=== PATIENT | female | born 1970 | race Caucasian/White ===

== ENCOUNTER 2019-09-27 15:09 | Emergency (ER) | payer MEDICARE, OTHER, SELFPAY ==
[2019-09-27 15:18] VITALS: BP 152/96; PULSE 101; RESP 16; TEMP 36.8; O2SAT 97; BMI 30.4
[2019-09-27 15:36] LABS: Basophils % 0.2 %; Eosinophils % 0.1 %; Hematocrit 43.2 % (37.0-47.0); Hemoglobin 14.2 g/dL (11.5-15.3); Lymphocytes # 0.7 10^3/uL (0.8-4.8); Lymphocytes % 5.5 %; Mean Corpuscular HGB Conc 32.9 g/dL (30.0-36.0); Mean Corpuscular Hemoglobin 29.3 pg (28.0-34.0); Mean Corpuscular Volume 89.1 fL (81-99); Mean Platelet Volume 8.8 fL (7.4-10.4); Monocytes # 0.4 10^3/uL (0.2-0.9); Neutrophils # 11.86 10^3/uL (1.8-7.7); Nucleated Red Blood Cells % 0 %; Platelet Count 307 10^3/cmm (130-400); Red Blood Count 4.85 10^6/uL (4.1-5.3); Red Cell Distribution Width 11.9 % (12.1-15.1)
[2019-09-27 15:40] VITALS: O2SAT 96
[2019-09-27 16:01] LABS: Anion Gap 13.2 (5-19); Blood Urea Nitrogen 14 mg/dL (6-20); Calcium 8.9 mg/dL (8.5-10.5); Carbon Dioxide 24 mmol/L (22-29); Chloride 97 mmol/L (98-107); Glomerular Filtration Rate 52.6 mL/min (90-130); Glucose 146 mg/dL (65-115); Osmolality Calculated 269 mOsm/kg (285-295); Potassium 4.2 mmol/L (3.5-5.1); Sodium 130 mmol/L (136-145)
--- NOTE | 2019-09-27 16:14 | ED_ITS ---
HPI - Female Genitourinary General: Chief complaint: Urogenital-Female Stated complaint: abd pain, cannot urinate Time Seen by Provider: 09/27/19 15:13 History of Present Illness: HPI Narrative: 49 yo female recently underwent lithotripsy for left ureteral calculi. She had a 1 cm stone she is complaining of severe left flank pain it is a little improved from before but still significant she is feels like she has difficulty urinating she is not had noticed any gross hematuria consistently but has had intermittent episodes she has been passing a few small stones but not for the last couple of days. She denies any fever sweats or chills MD elicited complaint: dysuria and difficulty urinating Pertinent past history: other (recent lithotripsy for ureteral stone) Onset (ago): hour(s) Location of symptoms: suprapubic Severity: moderate Female Urogenital Radiation: Non-Radiating Quality of pain: cramping Consistency: constant Vaginal discharge: none Vaginal bleeding: none Urinary symptoms: Difficulty Urinating Exacerbating factors: movement Relieving factors: none Associated symptoms: Reports abdominal pain; Deny short of breath, fevers/chills, headache(s), nausea, rash, seizures, syncope, vaginal discharge, weakness or other Treatment prior to arrival: none Sexual activity: No Patient : No Review of Systems Const: Denies: fever(s), chills, body aches, change in appetite, fatigue or malaise ENMT: Denies: throat pain, ear or mastoid pain, nasal discharge or nasal congestion Card: Denies: syncope Resp: Denies: dyspnea, productive cough or non-productive cough GI: Reports: abdominal pain; Denies: nausea : Denies: vaginal discharge Skin/Breast: Denies: rash or pruritus Neuro: Denies: headache(s) PFS ED PFSH: Surgical History History of lithotripsy Social History Smoking and tobacco status: light tobacco smoker Alcohol intake: never Marital status: Physical Exam Const: COMMON NORMALS: average body habitus, patient oriented x3 and alert GENERAL APPEARANCE: cooperative, comfortable, well kempt and well developed NUTRITIONAL APPEARANCE: obese ORIENTATION/CONSCIOUSNESS: Yes awake, Yes oriented to person and Yes oriented to place HENMT: COMMON NORMALS: normocephalic, atraumatic and EAC's normal HEAD & SCALP: normocephalic and atraumatic EXTERNAL AUDITORY CANAL: EAC's normal Eye: COMMON NORMALS: Equal, round and reactive pupils present, EOMs intact bilaterally, conjunctivae normal and no scleral icterus CONJUNCTIVA: Yes conjunctivae normal PUPIL: Yes Equal, round and reactive pupils present Neck/C-Spine: COMMON NORMALS: full ROM, no lymphadenopathy, supple, no meningeal signs and Thyroid normal THYROID: Thyroid normal and asymmetrical Lymph: LYMPHATIC: no lymphadenopathy noted Resp: COMMON NORMALS: normal respiratory effort, No retractions, No use of accessory muscles and clear to auscultation bilaterally AUSCULTATION: clear to auscultation bilaterally Cardio: COMMON NORMALS: regular rate and regular rhythm RATE: regular rate RHYTHM: regular rhythm HEART SOUNDS: no murmurs GI: COMMON NORMALS: Normal to inspection, nondistended, normoactive bowel sounds present, Soft to palpation and No hepatosplenomegaly present PALPATION: Yes Soft to palpation and Yes No hepatosplenomegaly present : BLADDER/KIDNEY EXAM: Yes CVA tenderness on the right Back/Pelvis: GENERAL BACK: Yes CVA tenderness LUMBAR SPINE/LOWER BACK: Yes normal to inspection Extremity: COMMON NORMALS: no clubbing, cyanosis or edema, no calf tenderness and no pedal edema Neuro: COMMON NORMALS: patient oriented x3 SENSORIUM/ORIENTATION: Yes alert, Yes oriented to person and Yes oriented to place MENINGEAL SIGNS: Yes no meningeal signs Psych: APPEARANCE: Yes well kempt Skin: COMMON NORMALS: no rashes or lesions noted and turgor normal GENERAL SKIN EXAM: no rashes or lesions noted and turgor normal Course Vital Signs: Vital signs: Vital Signs Temperature 98.2 F 09/27/19 15:18 Pulse Rate 92 09/27/19 18:07 Respiratory Rate 16 09/27/19 15:18 Blood Pressure 134/85 09/27/19 18:07 Pulse Oximetry 96 09/27/19 18:07 MDM - Female MDM Narrative: Medical decision making narrative: Her urine is unremarkable her CT shows a 7 mm stone still in the ureter. Discussed with that usually 5 mm or less or would consider possible. For now she is relatively comfortable organ to go ahead and discharge home with Zofran and tamsulosin lucinda has some hydrocodone continue to use what was previously prescribed. She has urology she has been seeing out of town encourage her to follow-up with him as soon as possible if she is not able to asked her to contact us back at the ER and we will try to make arrangements for her to see a local urologist Dr. Meyers. Lab Data: Attestation: I reviewed the patient's lab results. Labs: Lab Results 09/27/19 09/27/19 09/27/19 Range/Units 15:30 15:30 16:00 WBC 13.0 H (4.0-10.0) 10^3/ uL RBC 4.85 (4.1-5.3) 10^6/u L Hgb 14.2 (11.5-15.3) g/dL Hct 43.2 (37.0-47.0) % MCV 89.1 (81-99) fL MCH 29.3 (28.0-34.0) pg MCHC 32.9 (30.0-36.0) g/dL RDW 11.9 L (12.1-15.1) % Plt Count 307 (130-400) 10^3/c mm MPV 8.8 (7.4-10.4) fL Neut % (Auto) 91.0 % Lymph % (Auto) 5.5 % [place] % (Auto) 3.0 % Eos % (Auto) 0.1 % Baso % (Auto) 0.2 % Neut # (Auto) 11.86 H (1.8-7.7) 10^3/u L Lymph # (Auto) 0.7 L (0.8-4.8) 10^3/u L [place] # (Auto) 0.4 (0.2-0.9) 10^3/u L Eos # (Auto) 0.0 (0.0-0.8) 10^3/u L Baso # (Auto) 0.0 (0.0-0.1) 10^3/u L Nucleated RBC % (a uto) 0 % Nucleated RBCs # 0.0 /100WBC Sodium 130 L (136-145) mmol/L Potassium 4.2 (3.5-5.1) mmol/L Chloride 97 L (98-107) mmol/L Carbon Dioxide 24 (22-29) mmol/L Anion Gap 13.2 (5-19) BUN 14 (6-20) mg/dL Creatinine 1.1 H (0.5-0.9) mg/dL GFR Calculation 52.6 L (90-130) mL/min Glucose 146 H (65-115) mg/dL Calculated Osmolal ity 269 L (285-295) mOsm/k g Calcium 8.9 (8.5-10.5) mg/dL Urine Color Yellow (Yellow) Urine Appearance Clear (CLEAR) Urine pH 7 (5-7) Ur Specific Gravit y 1.015 (1.005-1.030) Urine Protein Neg (Negative) Urine Glucose (UA) Norm (Normal) Urine Ketones Negative (Negative) Urine Blood Neg (Negative) Urine Nitrate Negative (Negative) Urine Bilirubin Neg (NEGATIVE) Urine Urobilinogen Neg (Negative) mg/dL Ur Leukocyte Bailey ase Negative (Negative) Discharge Plan Discharge Patient Disposition: Home Clinical Impression: Calculus of left ureter Condition: Stable Prescriptions: New ondansetron HCl [Zofran] 4 mg tablet 4 mg PO Q6H PRN (Reason: nausea and vomiting) Qty: 20 RF: 0 tamsulosin 0.4 mg capsule 0.4 mg PO DAILY Qty: 14 RF: 0 No Action hydrocodone-acetaminophen 5-325 mg tablet 1 tab PO Q4H PRN (Reason: Pain) RF: 0 nortriptyline 10 mg Capsule 20 mg PO BEDTIME RF: 0 Probiotic 1 mg PO DAILY RF: 0 Vitamin D3 1 mg PO DAILY RF: 0 resveratrol 1 mg PO DAILY RF: 0 selenium 1 tab PO DAILY RF: 0 Discharge Orders: Discharge Order (Routine); Ordered 09/27/19 Ordered By: Link Hernandez Referrals: Tate Ya MD [Primary Care Provider] - Discharge Diet: Usual diet Discharge Activity: Increase activity as tolerated Activity Restrictions/Additional Instructions: Follow-up with your urologist as soon as you are able. Return to the emergency room if pain is uncontrollable Discharge Date/Time: 09/27/19 18:07 Coding Level of Care Code ED Portainer Operator for Darleen Fwd Exam Comprehensive
--- NOTE | 2019-09-27 16:16 | CTR_ITS ---
PROCEDURE INFORMATION: Exam: CT Abdomen And Pelvis Without Contrast Exam date and time: 09/27/2019 4:23 PM Age: 49 years old Clinical indication: Other: Unable to urinate; Abdominal pain; Flank; Left; Prior surgery; Surgery type: Tubal, lithotripsy; Additional info: Flank pain TECHNIQUE: Imaging protocol: Computed tomography of the abdomen and pelvis without contrast. Radiation optimization: All CT scans at this facility use at least one of these dose optimization techniques: automated exposure control; mA and/or kV adjustment per patient size (includes targeted exams where dose is matched to clinical indication); or iterative reconstruction. COMPARISON: No relevant prior studies available. RADIATION DOSE METRICS: Total DLP (mGy-cm): 1569.53 FINDINGS: Liver: Normal. No mass. Gallbladder and bile ducts: Normal. No calcified stones. No ductal dilation. Pancreas: Normal. No ductal dilation. Spleen: Normal. No splenomegaly. Adrenals: Normal. No mass. Kidneys and ureters: 7 mm calculus at the left ureteropelvic junction with mild left hydronephrosis. 8 mm inferior left renal calculus. Left perinephric stranding. The right kidney is normal. Stomach and bowel: Mild diverticulosis of the sigmoid colon. The stomach and small bowel are unremarkable. Appendix: The appendix is normal. Intraperitoneal space: Unremarkable. No free air. No significant fluid collection. Vasculature: Unremarkable. No abdominal aortic aneurysm. Lymph nodes: Unremarkable. No enlarged lymph nodes. Bladder: Ross catheter in a decompressed urinary bladder. Reproductive: Unremarkable as visualized. Bones/joints: Unremarkable. No acute fracture. Soft tissues: Unremarkable. CT/CT kidney stone 52422 IMPRESSION: 1. 7 mm obstructing calculus at the left ureteropelvic junction with mild hydronephrosis. 2. 8 mm left renal calculus. Radiation Dose CTDIVOL = (mGy): DLP = 1569.53 (mGy-cm)
[2019-09-27 16:52] LABS: Add Urine Microscopic? NO
[2019-09-27 17:00] LABS: Bilirubin Urine Neg (NEGATIVE); Blood Urine Neg (Negative); Glucose Urine UA Norm (Normal); Ketones Urine Negative (Negative); Leukocyte Esterase Urine Negative (Negative); Nitrate Urine Negative (Negative); Protein Urine Neg (Negative); Specific Gravity, Urine 1.015 (1.005-1.030); Urine Appearance Clear (CLEAR); Urine Color Yellow (Yellow); Urobilinogen Urine Neg (Negative); pH Urine 7 (5-7)
[2019-09-27 18:07] VITALS: BP 134/85; PULSE 92; O2SAT 96
--- NOTE | 2019-09-28 11:38 | DCPLANNER ---
biofuels technology development manager had message to schedule a follow up appointment for patient with Dr. Meyers. biofuels technology development manager called the office of Dr. Meyers, spoke with Yulissa, gave clinic patients information. biofuels technology development manager was told that patients information would be printed and reviewed. Clinic will call patient with appointment information.
--- NOTE | 2019-09-29 11:04 | DCPLANNER ---
Patient had a follow up appointment scheduled for 09.29.[address] Meyers - patient did attend appointment.
== END 2019-09-27 18:07 | disposition home or self-care (01) ==
PROVIDERS: Emergency Provider Family Medicine; PCP Family Medicine
DX: N20.1 Calculus of ureter (principal); F17.210 Nicotine dependence, cigarettes, uncomplicated
CPT/HCPCS: 12345; 51702; 51798; 74176; 80048; 81003; 85025; 99283

== ENCOUNTER 2019-09-29 07:50 | Outpatient (CLI) | payer MEDICARE, OTHER, SELFPAY ==
--- NOTE | 2019-09-29 08:00 | XR_ITS ---
WS: [id number] KUB, 09/29/2019 Clinical Data: STONES Comparison: None. Findings: No abnormal intraabdominal masses are seen. There is no dilatated small bowel or evidence of obstruc tion. There are calcifications overlying the inferior pole of the left kidney. There is a large amount of f ecal material in the ascending colon and transverse colon obscuring detail over both kidneys. The gumaro dder is partly full. XR/XR KUB [id number] Impression: Left renal calcifications.
== END 2019-09-29 07:51 | disposition home or self-care (01) ==
LOC: RAD 07:54
PROVIDERS: PCP Family Medicine; Visit Provider Nurse Practitioner Family
DX: N20.0 Calculus of kidney (principal); N20.1 Calculus of ureter
CPT/HCPCS: 74018; 81001; 82365

== ENCOUNTER 2019-09-29 12:41 | Day surgery (SDC) | payer MEDICARE, OTHER, SELFPAY ==
--- NOTE | 2019-09-29 | SCC_ITS ---
Procedure Done: 1. Cystoscopy, Left ureteral stent placement 16.3 seconds of fluoroscopic guidance, for a cumulative dose of 3.07 mGy, was provided to Dr. Meyers by the radiology department. C-arm images of the abdomen were saved for the patient's permanent record. [facility]
[2019-09-29 13:19] LABS: OR HCG Qualitative Urine Negative (Negative)
[2019-09-29 13:30] VITALS: BMI 30.4
[2019-09-29] MEDS: sodium chloride 0.9% 1,000 ML 30 ML IV (13:40)
--- NOTE | 2019-09-29 13:42 | ANES.PREANE2 ---
Pre-Anesthetic Assessment Pre-Anesthetic Assessment: Height/Weight: Height 1.65 m Weight 83.007 kg Preop Diagnosis: Left proximal ureteral stone with obstruction Proposed Procedure: Operation Date: 09/29/19 14:40 Proposed Procedures p Cystoscopy 83186 03724 N20.1(Not Applicable) - Oleg Meyers MD s Retrograde Pyelogram(Right) - MD rach Wright Ureteral Stent Placement(Not Applicable) - Oleg Meyers MD Familial anesthetic complications: none Last intake: Intake Banana and water at 0630 Last Liquid Date 09/29/19 Last Liquid Time 06:30 Last Solid Date 09/29/19 Last Solid Time 06:30 Social: Social History: No alcohol and No tobacco Exam: Pre-Anes Outpt Exam: alert, oriented x 3, clear to auscultation bilaterally and regular rate & rhythm Airway: Cervical ROM: WNL MP: 2 Dentition: Full CV/HEM: Comments: PSVT - usually can self terminate episodes by vagal maneuvers (holding breath and bearing down) Anesthetic Plan: ASA status: 1 Anesthesia: General Risk of > 500 ml blood loss (7ml/kg in children): No Meds/Allergies Current Medications: Current Medications Generic Name Dose Route Start Last Admin Trade Name Freq PRN Reason Stop Dose Admin Sodium Chloride 1,000 mls @ 30 ml s/hr 09/29/19 13:15 09/29/19 13:40 Sodium Chloride 0.9% IV 09/30/19 13:14 30 mls/hr .Q24H NICKY Administration PFSH Anesthesia PFSH: Surgical History History of lithotripsy Social History Smoking and tobacco status: light tobacco smoker Alcohol intake: never Marital status: Data Anesthesia Other Labs: Laboratory Results - last 48 hr 09/29/19 13:18 Urine HCG, Qual Negative Cardiac Studies: No Data to Display
--- NOTE | 2019-09-29 15:07 | SC_ITS ---
WS: [id number] C-arm fluoroscopy in the OR, 09/29/2019 Clinical Data: LEFT URETER STONE Comparison: None. Findings: A left ureteral stent has been inserted. The proximal portion demonstrates placement into the left re nal pelvis. SC/C-arm FL for Urology Impression: Left ureteral stent.
--- NOTE | 2019-09-29 15:27 | W.PM.OPSUD ---
Surgery/Procedure H&P Update DATE OF PROCEDURE: September 29, 2019 DATE H&P PERFORMED: 09/29/19 H&P UPDATE INFORMATION: I have reviewed H&P completed within last 30 days, I have examined patient prior to procedure and [place] [facility] date indicated PREOP DIAGNOSIS: Left proximal ureteral stone with obstruction PLANNED PROCEDURE: Operation Date: 09/29/19 14:40 Proposed Procedures p Cystoscopy 14763 80293 N20.1(Not Applicable) - Oleg Meyers MD s Retrograde Pyelogram(Right) - Oleg Meyers MD s Ureteral Stent Placement(Not Applicable) - Oleg Meyers MD
[2019-09-29] MEDS: levofloxacin-dextrose 5 % 500 MG/100 ML PREMIX 100 MG IV (15:30)
--- NOTE | 2019-09-29 15:38 | PM.OP ---
Operative Report Date of procedure: September 29, 2019 Pre-op Diagnosis: Left proximal ureteral stone with obstruction Post-op diagnosis: same Procedure Done: 1. Cystoscopy, Left ureteral stent placement Pathology: none sent Surgeon: Lugii Anesthesia: General Estimated blood loss: None Complications: None Findings: 7 Samoan by 26 cm double-pigtail stent placed. Condition: stable Disposition: PACU Brief History: Ольга is a very pleasant 49-year-old white female who I evaluated for the first time today in my office for severe left renal colic associated with a large fragment obstructing the left UPJ. About a week ago she underwent a extracorporeal shockwave lithotripsy at [facility] for a large left lower pole stone. She did well until 1 of the fragments became lodged at the left UPJ. It is too early for her to have retreatment at this point and she was offered a stent placement for palliation until that time Reviewed alternatives as well. Procedure: After routine preoperative evaluation examination and obtaining of informed consent she was taken to the operating suite on 09/29/2019 where general anesthesia was administered without difficulty after appropriate timeout was performed, SCDs confirmed to be functioning, preoperative antibiotics administered, beta-reema protocol confirmed. Prepped and draped in usual sterile fashion in dorsolithotomy position pain careful attention to avoiding pressure points 21 Samoan cystoscope with 30 degree lens was introduced into the urethral meatus and advanced into the bladder under videoscopy. Flexible tip guidewire was then advanced up the left ureter bypassing the stone and curling in the area of the renal pelvis and a 7 Samoan by 26 cm double-pigtail stent was advanced over the guidewire through the cystoscope into appropriate position as confirmed via fluoroscopy and cystoscopy. Bladder was drained. She tolerated the procedure well without complications and was awakened in the operating room and returned to the cover him in stable condition. PLANS: 1. Discharge from outpatient surgery 2. Follow-up the week of 10/02/2023 preop evaluation for possible repeat ESWL on 10/09/2019.
[2019-09-29 16:11] VITALS: BP 120/79; PULSE 105; RESP 16; TEMP 36.2; O2SAT 100
[2019-09-29 16:15] VITALS: BP 121/79; PULSE 92; RESP 16; O2SAT 100
[2019-09-29 16:20] VITALS: BP 121/82; PULSE 94; RESP 16; O2SAT 96
--- NOTE | 2019-09-29 16:20 | SUR.PHASEI ---
PT AWAKE ALERT DENIES PAIN AND NAUSEA PT ON RA TRIAL, VSS PT HAS A STENT NO STRING
[2019-09-29 16:28] VITALS: BP 121/81; PULSE 100; RESP 16; TEMP 36.3; O2SAT 97
[2019-09-29 16:58] VITALS: BP 109/79; PULSE 93; RESP 18; TEMP 36.3; O2SAT 96
[2019-09-29 17:00] VITALS: BP 130/85; PULSE 89; RESP 18; O2SAT 96
--- NOTE | 2019-09-29 17:00 | ANE.PACU2 ---
Inpatient post-anesthesia follow up: Airway intact: Yes Vital signs: Temperature 97.4 F Pulse Rate 89 Respiratory Rate 18 Blood Pressure 130/85 Pulse Oximetry 96 Oxygen Delivery Me thod Room Air Oxygen Flow Rate 8 Fraction of Inspir ed Oxygen Hydration adequate: Yes Nausea and vomiting: No Pain level: 2 Mental status: Baseline
== END 2019-09-29 17:15 | disposition home or self-care (01) ==
PROVIDERS: Anesthesiology; PCP Family Medicine; Visit Provider Urology
PROC: 0TJB8ZZ Inspection of Bladder, Via Natural or Artificial Opening Endoscopic (ICD-10-PCS; CPT 52000; principal; 2019-09-29 14:40)
PROC: (CPT 74420; 2019-09-29 14:40)
PROC: (CPT 50605; 2019-09-29 14:40)
DX: N20.1 Calculus of ureter (principal); F17.210 Nicotine dependence, cigarettes, uncomplicated; N20.0 Calculus of kidney
CPT/HCPCS: 52332; 12345; 74018; 76000; 81001; 82365; 84703; C2625; J1100; J1956; J2405; J2704; J2765; J3010; J7030

== ENCOUNTER 2019-10-06 09:42 | Outpatient (CLI) | payer MEDICARE, OTHER, SELFPAY ==
--- NOTE | 2019-10-06 09:15 | XR_ITS ---
WS: [id number] EXAM: ABDOMINAL KUB DATE OF EXAMINATION: 10/06/2019, 0958 hours COMPARISON: Abdominal KUB from 09/29/2019 HISTORY: Patient is 49 years old with kidney stone follow-up. FINDINGS: Since the prior examination a left double-J ureteral stent has been placed. Several calcifications al zander the inferior aspect of the left kidney silhouette are no longer seen. A stone or stones about 7 m m in size does remain overlying the inferior left kidney silhouette region. There is a small calcific ation seen along the distal left double-J ureteral stent in the area of the ureteral vesicle junction felt to be one of the small fragments of stone previously noted in the upper left kidney. Otherwise no definite calcifications seen along the course of the left double-J ureteral stent. No calcificatio ns overlying the right kidney silhouette or course of the right ureter. XR/XR KUB [id number] IMPRESSION: Interval placement of a left double-J ureteral stent. Partial loss of visualiza tion of stone fragments overlying the inferior left kidney silhouette. Piece of the stone appears to be at the left ureterovesical juncture along the stent. A bout 7 mm area of stone formation remains overlying the inferior left kidney si lhouette.
== END 2019-10-06 09:43 | disposition home or self-care (01) ==
LOC: RAD 09:46
PROVIDERS: PCP Family Medicine; Visit Provider Urology
DX: N20.1 Calculus of ureter (principal); Z96.0 Presence of urogenital implants
CPT/HCPCS: 74018; 81001

== ENCOUNTER 2019-10-09 11:38 | Day surgery (SDC) | payer MEDICARE, OTHER, SELFPAY ==
[2019-10-06 17:23] VITALS: BMI 30.7
[2019-10-09] VITALS (7 sets, daily range): BP systolic 113–127; BP diastolic 79–89; PULSE 85–112; RESP 12–18; TEMP 36.3–36.6; O2SAT 95–100
--- NOTE | 2019-10-09 11:52 | XR_ITS ---
WS: [id number] ABDOMEN KUB CLINICAL INFORMATION: Renal/ureteral calculi. COMPARISON: None. FINDINGS: Left double-J ureteral stent. Left renal parenchymal calculi measuring 78 mm unchanged. 3 mm calculus near the left UVJ unchanged. XR/XR KUB [id number] Impression: 1. Left double-J ureteral stent unchanged. 2. Left renal parenchymal calculi measuring 7-8 mm unchanged. 3. 3 mm calculus near the left UVJ unchanged
[2019-10-09] MEDS: sodium chloride 0.9% 1,000 ML 30 ML IV (12:25)
--- NOTE | 2019-10-09 12:42 | ANES.PREANE2 ---
Pre-Anesthetic Assessment Pre-Anesthetic Assessment: Height/Weight: Height 1.65 m Weight 83.915 kg Temp Pulse Resp BP Pulse Ox 97.3 F L 96 18 127/87 95 10/09/19 12:28 10/09/19 12:28 10/09/19 12:28 10/09/19 12:28 10/09/19 12:28 Preop Diagnosis: Left renal calculi, residual following previous ESWL Proposed Procedure: Operation Date: 10/09/19 13:10 Proposed Procedures p ESWL 04405 N20.1(Not Applicable) - Oleg Meyers MD Was Beta Al taken within 24 hours: N/A Last intake: Intake Last Liquid Date 10/09/19 Last Liquid Time 04:00 Last Solid Date 10/07/19 Last Solid Time 20:00 Social: Social History: Tobacco and No alcohol Exam: Pre-Anes Outpt Exam: alert, oriented x 3, clear to auscultation bilaterally and regular rate & rhythm Airway: Submandibular: WNL Cervical ROM: WNL MP: 1 Additional comments: WNL History/ROS: No significant history except as noted Pulmonary: Pulmonary: None reported CV/HEM: CV/HEM: Arrythmia Comments: PSVT with excessive caffeine : Comments: Chronic recurrent Renal Calculi Hepatic: Hepatic: None reported GI: GI: None reported Metabolic: Metabolic: None reported Musc/skel: Musc/skel: None reported Neuropsych: Neuropsych: Depression Anesthetic Plan: ASA status: 2 Anesthesia: General PFSH Anesthesia PFSH: Surgical History (Updated 10/06/19 @ 17:22 by Kimberly Otto) History of lithotripsy S/P ureteral stent placement Social History Smoking and tobacco status: light tobacco smoker Alcohol intake: never Marital status: Current occupational status: employed History of recent travel: No Female Reproductive History: Date of last menstrual period: 09/08/19 Data Anesthesia Cardiac Studies: No Data to Display
[2019-10-09 13:22] LABS: OR HCG Qualitative Urine Negative (Negative)
--- NOTE | 2019-10-09 13:24 | P.HPUD_ITS ---
Surgery/Procedure H&P Update DATE OF PROCEDURE: October 09, 2019 DATE H&P PERFORMED: 10/06/19 H&P UPDATE INFORMATION: I have reviewed H&P completed within last 30 days, I have examined patient prior to procedure, No changes to prior documentation and [place] [facility] [place] indicated PREOP DIAGNOSIS: Left renal calculi, residual following previous ESWL PLANNED PROCEDURE: Operation Date: 10/09/19 13:10 Proposed Procedures p ESWL 78153 N20.1(Not Applicable) - Oleg Meyers MD
[2019-10-09] MEDS: levofloxacin-dextrose 5 % 500 MG/100 ML PREMIX 100 MG IV (13:25)
--- NOTE | 2019-10-09 14:12 | PM.OP ---
Operative Report Date of procedure: October 09, 2019 Pre-op Diagnosis: Left renal calculi, residual following previous ESWL Post-op diagnosis: same Procedure Done: Extracorporeal shockwave lithotripsy left renal calculus Pathology: none sent Surgeon: Luigi Strategy Director: Lithotripsy Pile Driving Nozzleman: Bonita Anesthesia: General Estimated blood loss: Minimal Urine output: Not measured Complications: None Findings: Stones located in the left lower pole. Treated with 2500 shocks with excellent change. Condition: stable Disposition: PACU Brief History: Ольга is a very pleasant 49-year-old white female who I recently evaluated for the first time with complaints of severe left renal colic following partially successful ESWL to a left renal pelvic stone. Due to refractory pain she required a left ureteral stent placement. She still had a couple fragments or more they were too large to pass following her initial treatment with ESWL and is scheduled back now for second treatment to hopefully clear the stone. Procedure: After routine preoperative evaluation examination and obtaining of informed consent she was taken to the operating suite on 10/09/2019 where general anesthesia was administered without difficulty after appropriate timeout was performed, SCDs confirmed to be functioning, preoperative antibiotics administered, beta-reema protocol confirmed. Positioned on the Dornier unit such that the stone was located at the focal point utilizing biplanar fluoroscopy. The shock head was positioned posteriorly. Shockwave therapy was initiated intensity of 1 and slowly advance to an intensity of 4 with a 3-minute pause after approximately 300 shocks. Rate was 60 throughout. The 2 stones were located agin-td-ifdx in the lower pole and with slight Trendelenburg as the stones fragmented there was some drifting of the sand-like fragments to the superior portion. Change was very good. She tolerated the procedure well without complications and was awakened in the operating room and returned to the recovery room in stable condition. PLANS: 1. Follow-up next week with KUB possible cystoscopy stent removal. Associated Problem List Diagnoses (1) Left renal stone:
--- NOTE | 2019-10-09 14:22 | SUR.PHASEI ---
1421- LMA OUT, SIMPLE MASK AT 10 LPM, SAT 99%
== END 2019-10-09 15:29 | disposition home or self-care (01) ==
PROVIDERS: PCP Family Medicine; Visit Provider Urology
PROC: (CPT 50590; principal; 2019-10-09 13:10)
DX: N20.0 Calculus of kidney (principal); F17.200 Nicotine dependence, unspecified, uncomplicated
CPT/HCPCS: 50590; 12345; 74018; 81025; 84703; J1100; J1956; J2405; J2704; J2765; J3010; J7030

== ENCOUNTER 2019-10-17 07:09 | Outpatient (CLI) | payer MEDICARE, OTHER, SELFPAY ==
--- NOTE | 2019-10-17 07:15 | XRR_ITS ---
PROCEDURE INFORMATION: Exam: XR Abdomen, 1 View Exam date and time: 10/17/2019 7:22 AM Age: 49 years old Clinical indication: Condition or disease; Kidney or ureter condition; Calculus (stone) in kidney; Prior surgery; Surgery type: Lipthotripsy; Additional info: Renal stone TECHNIQUE: Imaging protocol: XR of the abdomen. Views: Frontal supine view of the abdomen. 1 View. COMPARISON: [place] XR KUB [id number] 10/09/2019 12:06 PM FINDINGS: Gastrointestinal tract: bowel gas pattern is nonspecific. Air filled large bowel including distal rectal gas. Large amount of stool throughout the large bowel. Organs: Double-J ureteric stent on the left with the proximal pigtail formed within the renal pelvis and the distal pigtail within the urinary bladder. Calcifications lower pole left kidney inferior to the proximal pigtail largest of approximately 6-7 mm. Limited characterization although similar findings previously noted. Vasculature: Calcification adjacent to the distal aspect of the double-J ureteric stent no longer visualized. Bones/joints: Unremarkable. XR/XR KUB [id number] IMPRESSION: 1. Bowel gas pattern is nonspecific. Air filled large bowel including distal rectal gas. 2. Large amount of stool throughout the large bowel. 3. Calcifications lower pole left kidney inferior to the proximal pigtail largest of approximately 6-7 mm. Limited characterization although similar findings previously noted. 4. Calcification adjacent to the distal aspect of the double-J ureteric stent no longer visualized.
== END 2019-10-17 07:10 | disposition home or self-care (01) ==
LOC: RAD 07:12
PROVIDERS: PCP Family Medicine; Visit Provider Urology
DX: N20.1 Calculus of ureter (principal); N20.0 Calculus of kidney; Z96.0 Presence of urogenital implants
CPT/HCPCS: 74018; 81001; 82365

== ENCOUNTER 2019-12-20 09:51 | Outpatient (CLI) | payer MEDICARE, OTHER, SELFPAY ==
--- NOTE | 2019-12-20 10:00 | XR_ITS ---
WS: [id number] XR KUB [id number] REASON FOR EXAM: RENAL STONE FINDINGS: In comparison to the previous examination of 10/17/2019, the left ureteral stent has been removed. Th e previously noted calculi fragments over the lower pole of the left kidney are also no longer identi fiable. No definite calculus is identified over the left kidney or along the course of the left ureter or wit hin the region of the bladder. No calculi within the urinary tract are identified on the right. The bowel gas pattern is unremarkable. No free air noted. XR/XR KUB [id number] IMPRESSION: No urinary tract calculi are identifiable on the current examination.
== END 2019-12-20 09:52 | disposition home or self-care (01) ==
LOC: RAD 09:54
PROVIDERS: PCP Family Medicine; Visit Provider Urology
DX: N20.0 Calculus of kidney (principal)
CPT/HCPCS: 74018; 81003

== ENCOUNTER → 2022-11-18 11:15 | Outpatient (BNVA) | payer MEDICARE, SELFPAY | PROVIDERS: PCP Family Medicine; Visit Provider Internal Medicine Rheumatology | DX: M79.642 Pain in left hand; Z79.899 Other long term (current) drug therapy; M45.6 Ankylosing spondylitis lumbar region; E55.9 Vitamin D deficiency, unspecified; M19.042 Primary osteoarthritis, left hand; G93.32 Myalgic encephalomyelitis/chronic fatigue syndrome; R76.8 Other specified abnormal immunological findings in serum; M19.90 Unspecified osteoarthritis, unspecified site; M25.551 Pain in right hip; M25.552 Pain in left hip; M70.51 Other bursitis of knee, right knee | CPT/HCPCS: 36415; 73130; 80076; 82565; 83520; 85025; 86160; 86162; 86235; 86255; 86376; 86480; 86704; 86803; 86812; 87340; 99204 ==

== ENCOUNTER → 2023-01-26 09:48 | Outpatient (BNVA) | payer MEDICARE, SELFPAY | PROVIDERS: PCP Family Medicine; Visit Provider Student in an Organized Health Care Education/Training Program | DX: M65.312 Trigger thumb, left thumb | CPT/HCPCS: 99204 ==

== ENCOUNTER 2023-02-25 08:18 | Day surgery (SDC) | payer MEDICARE, SELFPAY ==
[2023-02-25] VITALS (9 sets, daily range): BP systolic 125–150; BP diastolic 87–92; PULSE 68–81; RESP 12–18; TEMP 36.1–36.3; O2SAT 95–99; BMI 29.7
--- NOTE | 2023-02-25 08:44 | PC.NURSE ---
Patient refused toradol in preop due to history of reaction. Dr wang.
[2023-02-25] MEDS: sodium chloride 0.9% 1,000 ML 30 ML IV (08:55)
[2023-02-25] MEDS: acetaminophen 1,000 MG/100 ML PIGGYBACK 400 MG IV (08:55)
--- NOTE | 2023-02-25 10:53 | W.PM.OPSUD ---
Surgery/Procedure H&P Update DATE OF PROCEDURE: February 25, 2023 DATE H&P PERFORMED: 01/26/23 H&P UPDATE INFORMATION: I have reviewed H&P completed within last 30 days, I have examined patient prior to procedure and No changes to prior documentation PREOP DIAGNOSIS: Left thumb trigger PRIMARY INDICATION FOR PROCEDURE: Left thumb trigger PLANNED PROCEDURE: Operation Date: 02/25/23 10:00 Proposed Procedures p Trigger Thumb Release(Left) - Lobo Miguel DO
[2023-02-25] MEDS: ceFAZolin 2,000 MG in sodium chloride 0.9% (plus) 50 ML 100 MG IV (12:09)
[2023-02-25] MEDS: ROPivacaine 0.5% SDV 30 mL 25 MG INJECTION (12:20)
[2023-02-25] MEDS: BUPivacaine 0.5% INJ 10 mL 5 ML INJECTION (12:20)
--- NOTE | 2023-02-25 12:39 | W.PM.BPON ---
Date of Procedure: 02/25/2023 Surgeon: Lobo Miguel DO Die Try Out Worker Stamping(s): CHRISTAL Hernández Procedure(s) performed: Left trigger thumb release Findings of the procedure(s): Patient underwent procedure without complications Estimated blood loss: 1 mL Specimen(s) removed: None Post-operative diagnosis: Left thumb trigger
--- NOTE | 2023-02-25 12:40 | P.OP_ITS ---
Operative Report Date of procedure: February 25, 2023 Surgeon: Lobo Miguel DO Portable Feed Mill Operator: Fabiola Hernández?MASOUD Procedure: Preoperative diagnosis: Left thumb trigger post-op diagnosis: left?thumb?trigger Procedure done: left?thumb?trigger release Surgeon: Lobo Miguel DO Estimated blood loss: 1 mL Tourniquet time: 6 minutes Anesthesia: Local IV fluids: See anesthesia record Complications: None Findings: See operative report narrative Condition: stable Disposition: same day Brief History: Patient presents to the outpatient setting with findings consistent with a left?thumb?trigger. Patient has been worked up in the outpatient setting and is failed conservative treatment approach.? Patient has a left?thumb?trigger that she has tried treating conservatively with recurrence of her triggering pain.? We talked about treatment options and ultimately patient would like to proceed with a left?thumb?trigger release. At this point time I feel this is most appropriate as this is her next best step in treatment option.? We talked about the risk benefits complications and alternatives with surgical nonsurgical treatment options.? Understanding risk of surgery patient agrees to proceed with a left?thumb?trigger release. All questions answered. Procedure: Patient was seen evaluated in the preoperative holding area.? Consent was re viewed and signed with patient.? Correct extremity was then marked.? Patient was then seen and evaluated by the anesthesia department once cleared for surgery patient was then taken back to the operative suite patient was placed in supine position and all bony prominences well-padded the patient was properly secured to the bed.? Armboard was applied to the left upper extremity and the left upper extremity was then placed with a nonsterile tourniquet to the left upper arm.? This point time the left upper extremity was then prepped and draped in standard orthopedic fashion.? A final timeout was performed.? Patient received appropriate preoperative antibiotics. Plan was for local anesthesia. Esmarch tourniquet was used exsanguinate the left upper extremity and tourniquet was insufflated to 250 mmHg.? Local anesthesia was used for a left thumb digital block under sterile aseptic technique. Once appropriately anesthetized proceed with surgery. I identified patient's MP flexion crease marked appropriate incision transversely across the flexion crease within Catarina's lines sharp scalpel incision was made only through skin.? Once this was done I switched to Littler dissection scissors this I then subsequently spread longitudinally in the planes of the digital nerves.? Once these were identified these were protected by my hospital aides and assistants teacher with Kasdan retractors.? Next I identified directly over the A1 jade of the left?thumb.? This was significantly thickened and identified to be the area of patient's?thumb?triggering.? I used sharp scalpel to incise the A1 jade and then utilized my hospital aides and assistants teacher to retract the ability and under loupe magnification released the entirety of the A1 jade both proximally and distally up to the oblique jade.? This point time the tendon was then in spected and found to be healthy there was some inflammation around the tendon itself but no evidence of tearing and no need for any debridement.? The Ragnell was used to pull the tendon out of the incision and there was no mechanical triggering I then took the patient's?thumb?through range of motion no recurrent triggering was noted.? I then subsequently had the patient flex and extend the thumb and patient was found to have no mechanical triggering and significant improvement range of motion. ?I then let the tourniquet down identified and maintained exact hemostasis with bipolar electrocautery irrigated the wound bed and then closed the incision with interrupted nylon suture. Incision sites were then dressed with Xeroform 4 x 4's Kerlix Vivi wrap and an Kade wrap.? Patient was then awakened from anesthesia and taken to PACU in stable condition. Disposition: Patient taken to PACU in stable condition recovering well.? Dressing on in place clean dry and intact.? Patient was receive appropriate discharge instruction as well as pain medication postoperatively.? Patient may be allowed weightbearing as tolerated to the left hand and encourage range of motion once dressing come down after 72 hours.? Patient to follow-up with me in the office in 2 weeks.? Patient understands and agrees with current plan.? All questions answered.
== END 2023-02-25 13:11 | disposition home or self-care (01) ==
PROVIDERS: PCP Family Medicine; Visit Provider Student in an Organized Health Care Education/Training Program
PROC: (CPT 26055; principal; 2023-02-25 10:00)
DX: M65.312 Trigger thumb, left thumb (principal); M79.7 Fibromyalgia; Z87.11 Personal history of peptic ulcer disease; I10 Essential (primary) hypertension; F17.200 Nicotine dependence, unspecified, uncomplicated
CPT/HCPCS: 26055; J0131; J0690; J2795; J3490; J7030

== ENCOUNTER → 2023-03-09 13:38 | Outpatient (BNVA) | payer MEDICARE, SELFPAY | PROVIDERS: PCP Family Medicine; Visit Provider Physician Assistant | DX: Z98.890 Other specified postprocedural states (principal) | CPT/HCPCS: 99024 ==

== ENCOUNTER → 2023-03-15 11:29 | Outpatient (BNVA) | payer MEDICARE, SELFPAY | PROVIDERS: PCP Family Medicine; Visit Provider Internal Medicine Rheumatology | DX: Z79.899 Other long term (current) drug therapy (principal); M19.90 Unspecified osteoarthritis, unspecified site; G93.32 Myalgic encephalomyelitis/chronic fatigue syndrome; R76.8 Other specified abnormal immunological findings in serum; M25.551 Pain in right hip; M25.552 Pain in left hip; M70.51 Other bursitis of knee, right knee | CPT/HCPCS: 99214 ==

== ENCOUNTER → 2023-06-08 13:11 | Outpatient (BNVA) | payer MEDICARE, SELFPAY | PROVIDERS: PCP Family Medicine; Visit Provider Physician Assistant | DX: Z98.890 Other specified postprocedural states (principal) | CPT/HCPCS: 99213 ==

== ENCOUNTER → 2023-06-14 10:05 | Outpatient (BNVA) | payer MEDICARE, SELFPAY | PROVIDERS: PCP Family Medicine; Visit Provider Internal Medicine Rheumatology | DX: M19.90 Unspecified osteoarthritis, unspecified site (principal); Z79.899 Other long term (current) drug therapy; G93.32 Myalgic encephalomyelitis/chronic fatigue syndrome; R76.8 Other specified abnormal immunological findings in serum; M25.551 Pain in right hip; M25.552 Pain in left hip; M70.51 Other bursitis of knee, right knee | CPT/HCPCS: 73562; 99214 ==

== ENCOUNTER → 2023-09-24 09:40 | Outpatient (BNVA) | payer MEDICARE, SELFPAY | PROVIDERS: PCP Family Medicine; Visit Provider Physician Assistant | DX: M25.562 Pain in left knee (principal); M23.307 Other meniscus derangements, unspecified meniscus, left knee | CPT/HCPCS: 73560; 73565 ==

== ENCOUNTER 2023-09-24 10:52 | Outpatient (CLI) | payer MEDICARE, SELFPAY | END 2023-09-24 10:53 | disposition home or self-care (01) | LOC: SPT 10:54 | PROVIDERS: PCP Family Medicine; Visit Provider Physician Assistant | DX: Z46.89 Encounter for fitting and adjustment of other specified devices (principal); M23.307 Other meniscus derangements, unspecified meniscus, left knee | CPT/HCPCS: 99213; L1812 ==

== ENCOUNTER 2023-10-14 08:59 | Outpatient (CLI) | payer MEDICARE, SELFPAY ==
[2023-10-14 09:31] LABS: Basophils % 0.6 %; Eosinophils # 0.3 10^3/uL (0.0-0.8); Eosinophils % 4.9 %; Hematocrit 42.1 % (36-47); Lymphocytes # 1.5 10^3/uL (0.8-4.8); Lymphocytes % 23.8 %; Mean Corpuscular HGB Conc 32.8 g/dL (30-55); Mean Corpuscular Hemoglobin 29.9 pg (27-33); Mean Corpuscular Volume 91.3 fl (85-98); Mean Platelet Volume 8.7 fL (7.4-10.4); Monocytes # 0.5 10^3/uL (0.2-0.9); Monocytes % 7.8 %; Neutrophils % 62.6 %; Nucleated Red Blood Cells % 0 %; Platelet Count 302 10^3/cmm (157-399); Red Blood Count 4.61 10^6/uL (3.85-5.65); Red Cell Distribution Width 13.8 % (12.1-15.1); White Blood Count 6.39 10^3/uL (3.29-11.43)
[2023-10-14 09:49] LABS: Alanine Aminotransferase 14 U/L (0-33); Albumin Level 4.3 g/dL (3.5-5.2); Alkaline Phosphatase 98 U/L (35-105); Aspartate Amino Transferase 16 U/L (0-32); C Reactive Protein 5.8 mg/L (0.0-4.9); Globulin 2.6 g/dL (1.3-4.6); Glomerular Filtration Rate 87.2 mL/min (90-130); Total Bilirubin 0.5 mg/dL (0.15-1.2); Total Protein 6.9 g/dL (6.6-8.7)
== END 2023-10-14 09:00 | disposition home or self-care (01) ==
LOC: LAB 09:01
PROVIDERS: PCP Family Medicine; Visit Provider Internal Medicine Rheumatology
DX: Z79.899 Other long term (current) drug therapy (principal); M19.90 Unspecified osteoarthritis, unspecified site
CPT/HCPCS: 80076; 82565; 85025; 86140

== ENCOUNTER → 2023-10-25 10:11 | Outpatient (BNVA) | payer MEDICARE, SELFPAY | PROVIDERS: PCP Family Medicine; Visit Provider Internal Medicine Rheumatology | DX: G93.32 Myalgic encephalomyelitis/chronic fatigue syndrome (principal); R76.8 Other specified abnormal immunological findings in serum; M19.90 Unspecified osteoarthritis, unspecified site | CPT/HCPCS: 99214 ==

== ENCOUNTER → 2023-11-10 14:08 | Outpatient (BNVA) | payer MEDICARE, SELFPAY | PROVIDERS: PCP Family Medicine; Visit Provider Physician Assistant | DX: M23.307 Other meniscus derangements, unspecified meniscus, left knee (principal) | CPT/HCPCS: 99213 ==

== ENCOUNTER 2023-12-09 10:34 | Outpatient (CLI) | payer MEDICARE, SELFPAY ==
--- NOTE | 2023-12-09 11:00 | MR_ITS ---
WS: [id number] MRI LEFT KNEE HISTORY: derangement of meniscus of left knee COMPARISON: 09/24/2023 radiograph Anterior cruciate ligament: Intact. Posterior cruciate ligament: Intact. Medial collateral ligament: Intact. Posterior lateral corner structures: Intact. Medial menisci: Anterior horn is normal. Normal size posterior horn. Towards the meniscal root there is slight increased signal and smudginess. No definite tear is identified but there is at least intra substance degeneration. More focal irregularity along the superior surface of the posterior horn. Braydon face irregularity is also towards the meniscal root. Lateral meniscus: Intact. Normal signal, size and shape. Extensor mechanism: Distal quadriceps tendon and patellar tendons are intact. Fluid and soft tissue: Small suprapatellar joint effusion. No Wasserman's cyst. Osseous and articular structures: Patellofemoral compartment: Normal. Medial compartment: Minimal narrowing the medial compartment with minimal fraying along the surface o f the cartilage. No marrow edema. Lateral compartment: Mild surface fraying of the cartilage. No marrow edema. MR/MR knee LT wo con* [id number] IMPRESSION: 1. Abnormal intermediate signal in the meniscal root of the posterior medial m eniscus with surface irregularity. Most likely intrasubstance degeneration with some focal signal abnormality along the superior surface of the meniscus. No t ear is identified. 2. Small suprapatellar joint effusion. 3. No fracture.
== END 2023-12-09 10:35 | disposition home or self-care (01) ==
LOC: RAD 10:36
PROVIDERS: PCP Family Medicine; Visit Provider Physician Assistant
DX: M23.307 Other meniscus derangements, unspecified meniscus, left knee (principal); M25.562 Pain in left knee; M25.462 Effusion, left knee; M17.12 Unilateral primary osteoarthritis, left knee
CPT/HCPCS: 73721

== ENCOUNTER → 2023-12-28 09:34 | Outpatient (BNVA) | payer MEDICARE, SELFPAY | PROVIDERS: PCP Family Medicine; Visit Provider Student in an Organized Health Care Education/Training Program | DX: M23.307 Other meniscus derangements, unspecified meniscus, left knee (principal); Z09 Encounter for follow-up examination after completed treatment for conditions other than malignant neoplasm | CPT/HCPCS: 99214 ==

== ENCOUNTER 2024-01-27 09:24 | Day surgery (SDC) | payer MEDICARE, SELFPAY ==
[2024-01-27] VITALS (10 sets, daily range): BP systolic 99–127; BP diastolic 70–79; PULSE 75–105; RESP 10–17; TEMP 36.2–36.9; O2SAT 95–99; BMI 28.3
--- NOTE | 2024-01-27 10:14 | P.HP_ITS ---
Same Day Surgery H&P Indication for Procedure/HPI DATE OF PROCEDURE: January 27, 2024 CHIEF COMPLAINT/INDICATIONFOR SURGICAL PROCEDURE: Left knee medial meniscus tear PREOP DIAGNOSIS: Left knee medial meniscus PLANNED PROCEDURE: Operation Date: 01/27/24 11:05 Proposed Procedures p knee diagnostic and surgical arthroscopy with partial medial meniscectomy versus repair(Left) - Lobo Miguel DO Medications/Allergies* Home Medications Medication Instructions Recorded Confirmed Type cholecalciferol (vitamin D3) 10 10 mcg PO DAILY 10/09/19 01/26/24 History mcg (400 unit) capsule (Vitamin D3) selenium 100 mcg tablet 100 mcg PO DAILY 10/09/19 01/26/24 History ascorbic acid (vitamin C) 1 tab PO DAILY 11/18/22 01/26/24 History zinc citrate 50 mg PO DAILY 11/18/22 01/26/24 History aspirin 81 mg tablet 81 mg PO DAILY 02/25/23 01/26/24 History vitamin A palmitate 2,400 mcg PO DAILY 10/25/23 01/26/24 History vitamin K2 100 mcg capsule 100 mcg PO DAILY 01/26/24 01/26/24 History Allergies/Adverse Reactions Allergy/AdvReac Type Severity Reaction Status Date / Time leflunomide Allergy Unknown Unknown Verified 01/27/24 09:43 sulfasalazine Allergy Unknown ADR-Diarrhe Verified 01/27/24 09:43 a Iodinated Contrast Media Allergy ALGY-Anaphy Verified 01/27/24 09:43 laxis shellfish derived Allergy ALGY-Wheezi Verified 01/27/24 09:43 ng methotrexate AdvReac Intermediate fatigue Verified 01/27/24 09:43 Pertinent History/Comorbid Conditions* Medical History (Updated 09/24/23 @ 10:31 by KEZIA Serrano) Pes anserinus bursitis of right knee Greater trochanteric pain syndrome of both lower extremities Inflammatory arthritis Positive JEANETTE (antinuclear antibody) Chronic fatigue syndrome Fibromyalgia Chronic pain syndrome Joint pain History of ulcer disease History of hypertension Left renal stone Surgical History (Updated 03/09/23 @ 14:47 by KEZIA Serrano) H/O tubal ligation S/P ureteral stent placement History of lithotripsy 2 treatments to large left renal calculus. First in [place] [facility] [place] Stented after the first procedure due to refractory pain related to fragment not passing Family History (Updated 11/18/22 @ 10:34 by Rossy Pardo LPN) Diabetes Hyperlipidemia Family history of premature coronary artery disease Cancer Hypertension Denies family history of Rheumatoid arthritis Lupus Chronic kidney disease (CKD) Stroke Social History Smoking and tobacco/nicotine status: former use of tobacco/nicotine Alcohol intake: never Substance/Drug Use: never Marital status: Current occupational status: employed Pertinent Exam Findings alert, oriented x 3, operative site marked and procedure specific exam findings Please refer to detailed orthopedic exam on 12/27/2023: Left Knee exam -ROM Full active range of motion with some pain on lateral aspect of knee with flexion. -lateral joint line tenderness -Negative Lina's -Stable varus valgus stress -Positive Benjamin's test with pain and no clicking -Patient can wiggle toes and has a pedal pulse of 2+. Recommendations Surgery/Procedure today Other Plans: Plan to proceed to the OR today for left knee diagnostic and surgical therapy with partial medial meniscectomy versus repair. Patient understands the ins and outs procedure the risk benefits complication alternatives surgery and through shared decision make elects proceed with surgical invention. All questions answered at this time. Coding Level of Care Code Acute Code for Angie Lopez
[2024-01-27] MEDS: scopolamine 1.5 Patch 1 PATCH TRANSDERMA (10:20)
[2024-01-27] MEDS: acetaminophen 1,000 MG/100 ML PIGGYBACK 400 MG IV (10:21)
[2024-01-27] MEDS: sodium chloride 0.9% 1,000 ML 30 ML IV (10:21)
--- NOTE | 2024-01-27 10:27 | P.ANESASSM_ITS ---
Pre-Anesthetic Assessment Height/Weight: Height 5 ft 4 in Weight 165 lb Temp Pulse Resp BP Pulse Ox O2 Del Method 98.5 F 75 17 111/77 98 Room Air 01/27/24 09:48 01/27/24 09:48 01/27/24 09:48 01/27/24 09:48 01/27/24 09:48 01/27/24 09:49 Preop Diagnosis: Left knee medial meniscus Operation Date: 01/27/24 11:05 Proposed Procedures p knee diagnostic and surgical arthroscopy with partial medial meniscectomy versus repair(Left) - Lobo Brisenoatt, DO Was Beta Al taken within 24 hours: N/A Was Clonidine taken within 24 hours: N/A Last intake: Intake Last Liquid Date 01/26/24 Last Liquid Time 21:00 Last Solid Date 01/26/24 Last Solid Time 21:00 Social No alcohol and No tobacco Exam alert, oriented x 3, clear to auscultation bilaterally and regular rate & rhythm Airway Submandibular: within normal limits Cervical ROM: within normal limits Mallampati: Class II Dentition: full Anesthetic Plan ASA status: 2 Anesthesia: General Other: No prior issues with anesthesia NPO since yesterday Patient denies any pulmonary issues Patient was recently being worked up for heart palpitations, history of SVT. Holter monitor just completed and she was told it was all WNL. This was done at [place] and we do not have access to those records Denies any chest pain, shortness of breath METs greater than 4 Plan for general anesthesia Medications/Allergies Home Medications Medication Instructions Recorded Confirmed Last Taken Type cholecalciferol (vitamin D3) 10 10 mcg PO DAILY 10/09/19 01/26/24 01/26/24 Histo ry mcg (400 unit) capsule (Vitamin D3) selenium 100 mcg tablet 100 mcg PO DAILY 10/09/19 01/26/24 01/26/24 History ascorbic acid (vitamin C) 1 tab PO DAILY 11/18/22 01/26/24 01/26/24 History zinc citrate 50 mg PO DAILY 11/18/22 01/26/24 01/26/24 History aspirin 81 mg tablet 81 mg PO DAILY 02/25/23 01/26/24 01/26/24 History tramadol 50 mg tablet 50 mg PO Q6H PRN pain #20 tabs 02/25/23 01/26/24 Unknown Rx left economy knee brace #1 ea 09/24/23 12/28/23 Unknown Rx vitamin A palmitate 2,400 mcg PO DAILY 10/25/23 01/26/24 01/26/24 History vitamin K2 100 mcg capsule 100 mcg PO DAILY 01/26/24 01/26/24 01/26/24 History Allergies Allergy/AdvReac Type Severity Reaction Status Date / Time leflunomide Allergy Unknown Unknown Verified 01/27/24 09:43 sulfasalazine Allergy Unknown ADR-Diarrhe Verified 01/27/24 09:43 a Iodinated Contrast Media Allergy ALGY-Anaphy Verified 01/27/24 09:43 laxis shellfish derived Allergy ALGY-Wheezi Verified 01/27/24 09:43 ng methotrexate AdvReac Intermediate fatigue Verified 01/27/24 09:43 Current Medications Generic Name Dose Route Start Last Admin Trade Name Freq PRN Reason Stop Dose Admin Sodium Chloride 1,000 mls @ 30 mls/hr 01/27/24 09:45 01/27/24 10:21 Sodium Chloride 0.9% IV 01/28/24 09:44 30 mls/hr .Q24H NICKY Administration PFSH Anesthesia Medical History Pes anserinus bursitis of right knee Greater trochanteric pain syndrome of both lower extremities Inflammatory arthritis Positive JEANETTE (antinuclear antibody) Chronic fatigue syndrome Fibromyalgia Chronic pain syndrome Joint pain History of ulcer disease History of hypertension Left renal stone Surgical History H/O tubal ligation S/P ureteral stent placement History of lithotripsy 2 treatments to large left renal calculus. [place] [facility] [place] after the first procedure due to refractory pain related to fragment not passing Family History Other Cancer Diabetes Family history of premature coronary artery disease Hyperlipidemia Hypertension Denies family history of Rheumatoid arthritis Lupus Chronic kidney disease (CKD) Stroke Social History Smoking and tobacco/nicotine status: former use of tobacco/nicotine Alcohol intake: never Substance/Drug Use: never Marital status: Current occupational status: employed Data Anesthesia Cardiac Studies: No Data to Display
[2024-01-27] MEDS: ceFAZolin 2,000 mg SDV 2000 MG IVP (10:32)
[2024-01-27] MEDS: lidocaine-epi 1% 20 mL INJ INJECTION (11:38)
--- NOTE | 2024-01-27 12:02 | P.BOP_ITS ---
Date of Procedure: 01/27/2024 Surgeon: Lobo Miguel DO Cutting Machine Tender(s): None Procedure(s) performed: Left knee diagnostic and surgical arthroscopy with medial compartment chondroplasty Left knee diagnostic and surgical arthroscopy with extensive synovectomy (medial, lateral, patellofemoral compartments) Findings of the procedure(s): Patient underwent procedure without any issues or complications. She was found to have grade 2 -3 chondromalacia medially as well as 1 -2 chondromalacia patellofemoral and lateral. The medial meniscus was evaluated and found to be intact and pristine there was no evidence of meniscus tear or meniscal root tear as this was probed with an arthroscopic probe and was found to be intact. Subsequently went a medial compartment chondroplasty as well as extensive synovectomy patient Toller procedure well without issues or complications taken PACU stable condition Estimated blood loss: 2 mL Specimen(s) removed: None Post-operative diagnosis: Left knee medial compartment chondromalacia, extensive synovitis
--- NOTE | 2024-01-27 12:04 | PM.OP ---
Operative Report Date of procedure: January 27, 2024 Surgeon: Lobo Miguel DO Procedure: Preop Dx: Left knee medial meniscus tear Post-op diagnosis: Left knee medial compartment chondromalacia, extensive synovitis, no medial meniscus tear Procedure done: Left knee diagnostic and surgical arthroscopy with medial compartment chondroplasty Left knee diagnostic and surgical arthroscopy with extensive synovectomy (medial, lateral, patellofemoral compartments) Surgeon: Lobo Miguel DO Estimated blood loss: 5mL Tourniquet: No tourniquet was used IV fluids: See anesthesia record Complications: None Findings: See operative report narrative Condition: stable Disposition: same day Brief History: Patient is a 53-year-old female with left?knee?pain.? Patient has failed conservative treatment who has been worked up for left??knee?pain in the outpatient setting. MRI findings consistent with possible tear of the medial meniscus. talked in the office about treatment options patient would like to proceed with a left?knee?diagnostic and surgical arthroscopy with partial medial meniscectomy vs repair.? Patient understands the ins and outs of the procedure the risk benefits complication alternatives to treatment options.? Understanding risk of surgery pt agree to proceed with surgical intervention.? Patient understand this may not provide patient with complete symptomatic relief of? pain as patient does have some underlying arthritis.? Understanding this and patient agree to proceed with surgical intervention all questions answered. Procedure: Patient seen and evaluated in the preoperative holding area.? Consent was reviewed and signed with patient.? Correct extremity was then marked.? Patient seen evaluated Anesthesia Department once cleared for surgery patient was taken back to the operative suite.? Patient was transported onto the OR table in supine position.? All bony prominences well-padded patient was appropriate secured to the bed.? Once appropriately anesthetized a nonsterile tourniquet was applied to the left thigh.? The left lower extremity was then prepped and draped in standard orthopedic fashion.? Final timeout performed.? Patient received appropriate preoperative antibiotics. Patient received local anesthetic of lidocaine with epinephrine into the joint as well as around the portal sites.? No tourniquet was inflated A standard 2 portal vertical incision diagnostic and surgical arthroscopy of the left?knee?was performed in standard fashion using arthrex nanoscope.? Small stab incision made in the inferolateral portal introduced trocar and arthroscope into the suprapatellar pouch.? Suprapatellar pouch was subsequently visualized and found to have significant synovitis but no loose bodies.? Patient had noticeable significant inflamed infrapatellar fat pad and thickening hypertrophic within the patellofemoral compartment.? ?The medial gutter was free of loose bodies I then introduced the arthroscope into the medial compartment.? Within the medial compartment I then established my inferior medial working portal utilizing spinal needle outside in technique.? Once established I then visualized our articular cartilage of the medial compartment with a valgus stress.? Patient was found to have grade 2-3 chondromalacia throughout the medial compartment.? Next I inspected the meniscus.? With an arthroscopic probe was utilized to visual? all aspects of the meniscus.? Meniscal root was found to be intact.? The Rest of the meniscus was found to be intact with no tear.? I then subsequently introduced a basket forceps as well as arthroscopic shaver to perform a synovectomy of the medial compartment.? Given patient's chondromalacia there was areas of unstable articular cartilage and I subsequently performed a chondroplasty with arthroscopic shaver and thermal wand.? This completed medial compartment work. Next a introduced the arthroscope to the intercondylar notch.? PCL and ACL were intact. patient had significant thickening of the infrapatellar fat pad spanning into the medial and lateral compartments.? I then performed an extensive synovectomy with the arthroscopic shaver of the patellofemoral medial and lateral compartments as well as the intercondylar notch. Advance the?scope?into the retrocruciate space and no loose bodies were found. Next I introduced the arthroscope into the lateral compartment the lateral compartment was found to have grade 2 chondromalacia.? Lateral meniscus was found to be intact.? The root was intact.? Given the grade II chondromalacia there is no unstable cartilage pieces to perform chondroplasty.? This completed my work of the lateral compartment and then performed a synovectomy of the lateral compartment.? Next of the arthroscope was placed into the lateral gutter and this was free of loose bodies.? Finally I reintroduced the arthroscope into the patellofemoral compartment.? The patellofemoral was found to have grade 1-2 chondromalacia of the patellofemoral compartment.? At this point I utilized arthroscopic shaver as well as thermal wand to perform extensive synovectomy of the patellofemoral compartment. This completed my work of the patellofemoral space.? I then switch my portal sites to the medial working portal.? Completed the rest of my synovectomy and the rest of my examination arthroscopy was normal. All fluid was suctioned from the joint.? ?All instruments were withdrawn.? Portal sites were closed with interrupted nylon suture.? portal sites were then covered with with Xeroform 4 x 4's ABD Curlex and Kade wrap.? Patient was then subsequently awakened from anesthesia and taken to PACU in stable condition. Disposition: Patient taken to PACU in stable condition recovering well.? Will receive appropriate discharge structure as well as pain medication postoperatively as well as? DVT prophylaxis.we will have patient follow-up with us in the office in 2 weeks.? We will weightbearing as tolerated to the operative lower extremity.? Patient understands and agrees with current plan.? All questions answered.
[2024-01-27] MEDS: HYDROcodone-acetaminophen 5-325 mg Tablet 1 TAB PO (12:37)
--- NOTE | 2024-01-27 13:03 | ANE.PACU2 ---
Inpatient post-anesthesia follow up: Airway intact: Yes Vital signs: Temperature 97.5 F Pulse Rate 81 Respiratory Rate 17 Blood Pressure 123/73 Pulse Oximetry 99 Oxygen Delivery Me thod Room Air Oxygen Flow Rate Fraction of Inspir ed Oxygen Hydration adequate: Yes Nausea and vomiting: No Pain level: 1 Mental status: Baseline
== END 2024-01-27 13:03 | disposition home or self-care (01) ==
PROVIDERS: PCP Family Medicine; Visit Provider Student in an Organized Health Care Education/Training Program
PROC: (CPT 29870; principal; 2024-01-27 11:05)
PROC: (CPT 29876; 2024-01-27 11:05)
PROC: (CPT 29876; 2024-01-27 11:05)
DX: S83.242A Other tear of medial meniscus, current injury, left knee, initial encounter (principal); X58.XXXA Exposure to other specified factors, initial encounter; M79.7 Fibromyalgia; I10 Essential (primary) hypertension; Z87.11 Personal history of peptic ulcer disease; Z87.891 Personal history of nicotine dependence
CPT/HCPCS: 29876; J0131; J0690; J1100; J2704; J7030

== ENCOUNTER → 2024-02-15 10:38 | Outpatient (BNVA) | payer MEDICARE, SELFPAY | PROVIDERS: PCP Family Medicine; Visit Provider Student in an Organized Health Care Education/Training Program | DX: Z98.890 Other specified postprocedural states (principal) | CPT/HCPCS: 99024 ==

== ENCOUNTER → 2024-04-11 10:00 | Outpatient (BNVA) | payer MEDICARE, SELFPAY | PROVIDERS: PCP Family Medicine; Visit Provider Physician Assistant | DX: Z98.890 Other specified postprocedural states (principal) | CPT/HCPCS: 99024 ==

== ENCOUNTER → 2024-04-17 10:02 | Outpatient (BNVA) | payer MEDICARE, SELFPAY | PROVIDERS: PCP Family Medicine; Visit Provider Internal Medicine Rheumatology | DX: G93.32 Myalgic encephalomyelitis/chronic fatigue syndrome (principal); R76.8 Other specified abnormal immunological findings in serum; M19.90 Unspecified osteoarthritis, unspecified site; M25.551 Pain in right hip; M25.552 Pain in left hip; M70.51 Other bursitis of knee, right knee; Z79.899 Other long term (current) drug therapy | CPT/HCPCS: 36415; 80076; 82306; 82565; 85025; 85651; 86140; 99214 ==

== ENCOUNTER → 2024-10-09 08:17 | Outpatient (BNVA) | payer MEDICARE, SELFPAY | PROVIDERS: PCP Family Medicine; Referring Provider Family Medicine; Visit Provider Specialist | DX: G93.32 Myalgic encephalomyelitis/chronic fatigue syndrome (principal); M79.7 Fibromyalgia | CPT/HCPCS: 99204 ==